=== PATIENT | female | born 1975 | race Caucasian/White ===

== ENCOUNTER 2018-06-05 11:03 | Emergency (ER) | payer SELFPAY ==
[~2018-06-05] VITALS: Ht 165.1 cm; Wt 63.5 kg
[2018-06-05 11:05] VITALS: Ht 165.1 cm; Wt 63.5 kg
[2018-06-05 11:30] LABS: BASOPHIL % 0.9 % (0-2)
[2018-06-05 11:36] LABS: PLATELET COUNT 432 x10^3mcL (130-400); RED CELL DISTRIBUTION WIDTH 17.3 % (11.5-14.5)
[2018-06-05 11:57] LABS: CALCIUM 7.8 mg/dL (8.5-10.1); CARBON DIOXIDE 28.2 mmol/L (21-32); CHLORIDE SERUM 102 mmol/L (98-107); CREATININE SERUM 0.9 mg/dL (0.6-1.0); GFR1 > 60 mL/min; GLUCOSE SERUM 108 mg/dL (74-106); POTASSIUM SERUM 3.6 mmol/L (3.5-5.1); SODIUM SERUM 138 mmol/L (136-145)
[2018-06-05 12:03] LABS: ALBUMIN 3.9 g/dL (3.4-5.0); ALKALINE PHOSPHATASE 76 U/L (46-116); ALT/SGPT 17 U/L (14-59); AMYLASE 64 U/L (25-115); AST/SGOT 13 U/L (15-37); BILIRUBIN TOTAL 0.21 mg/dL (0.20-1.00); LIPASE 118 IU/L (73-393); TOTAL PROTEIN, SERUM 7.9 g/dL (6.4-8.2)
[2018-06-05 12:33] LABS: AMPHETAMINE QUAL UR NONE DETECTED (See below)
[2018-06-05 13:03] VITALS: BP 148/89
== END 2018-06-05 13:03 | disposition home or self-care (01) ==
LOC: ED 11:03
PROVIDERS: Specialist
DX: N80.9 Endometriosis, unspecified (principal); G89.29 Other chronic pain; R10.31 Right lower quadrant pain; R10.32 Left lower quadrant pain; F41.9 Anxiety disorder, unspecified
CPT/HCPCS: G0480; J1885; J2405; J3010

== ENCOUNTER 2018-07-27 09:31 | Emergency (ER) | payer SELFPAY ==
[~2018-07-27] VITALS: Ht 165.1 cm; Wt 63.5 kg
[2018-07-27 09:39] VITALS: Ht 165.1 cm; Wt 63.5 kg
[2018-07-27 10:22] LABS: BASOPHIL % 0.4 % (0-2)
[2018-07-27 10:24] LABS: PLATELET COUNT 430 x10^3mcL (130-400); RED CELL DISTRIBUTION WIDTH 17.4 % (11.5-14.5)
[2018-07-27 10:40] LABS: CALCIUM 7.7 mg/dL (8.5-10.1); CARBON DIOXIDE 25.1 mmol/L (21-32); CHLORIDE SERUM 106 mmol/L (98-107); GFR1 > 60 mL/min; GLUCOSE SERUM 105 mg/dL (74-106); POTASSIUM SERUM 3.7 mmol/L (3.5-5.1); SODIUM SERUM 140 mmol/L (136-145)
[2018-07-27 10:44] LABS: ALBUMIN 3.9 g/dL (3.4-5.0); ALKALINE PHOSPHATASE 62 U/L (46-116); ALT/SGPT 17 U/L (14-59); AMYLASE 52 U/L (25-115); AST/SGOT 14 U/L (15-37); BILIRUBIN TOTAL 0.24 mg/dL (0.20-1.00); LIPASE 118 IU/L (73-393); TOTAL PROTEIN, SERUM 7.9 g/dL (6.4-8.2)
[2018-07-27 13:23] LABS: UA SPECIFIC GRAVITY 1.015 (1.005-1.035); microscopic required? YES; urine erythrocyte 2+ (NEGATIVE)
[2018-07-27 16:26] VITALS: BP 118/81
[2018-07-28 10:59] LABS: RAPID PLASMA REAGIN Non Reactive (Non Reactive)
== END 2018-07-27 16:26 | disposition home or self-care (01) ==
LOC: ED 09:31
PROVIDERS: Emergency Medicine
DX: N80.1 Endometriosis of ovary (principal); N80.0 Endometriosis of uterus; D64.9 Anemia, unspecified; F41.9 Anxiety disorder, unspecified
CPT/HCPCS: 36415; 87491; 87591; J0500; J1885; J7030; Q9967

== ENCOUNTER 2018-08-15 17:13 | Emergency (ER) | payer SELFPAY ==
[~2018-08-15] VITALS: Ht 152.4 cm; Wt 63.5 kg
[2018-08-15 17:22] VITALS: Ht 152.4 cm; Wt 63.5 kg
[2018-08-15 21:15] VITALS: BP 113/62
== END 2018-08-15 21:15 | disposition home or self-care (01) ==
LOC: ED 17:13
DX: D25.9 Leiomyoma of uterus, unspecified (principal); N83.202 Unspecified ovarian cyst, left side; N83.201 Unspecified ovarian cyst, right side; F41.9 Anxiety disorder, unspecified
CPT/HCPCS: J1885; Q0162